=== PATIENT | female | born 1940 | race Caucasian/White ===

== ENCOUNTER 2017-05-21 14:55 | Emergency (ER) | payer SELFPAY ==
[~2017-05-21] VITALS: Ht 154.9 cm; Wt 74.8 kg
[2017-05-21 15:36] VITALS: BP 199/96
--- NOTE | 2017-05-21 15:37 | PHYS DOC ---
Past Medical History Past Medical History: Arthritis, Hypertension Additional Past Medical Histor: RLS Past Surgical History: Appendectomy, Cholecystectomy, Hysterectomy Additional Past Surgical Histo: EXPLORATORY ABD, HERNIA, L ARM FX, OVARIAN CYST Alcohol Use: None Drug Use: None Adult General Chief Complaint Chief Complaint: MECHANICAL FALL HPI HPI Patient is a 77 year old female brought to the ED by EMS from [place] [employer] parking lot after a fall. The patient had been shopping, she was looking for her car, and she tripped on a curb, fell face first and injured her nose. At first she thought she had a nosebleed but it turns out the bleeding was coming from external nasal injury. She denies hitting her head, denies mouth, tooth, tongue trauma. She denies neck pain. Denies wrist or knee pain. Her glasses were bent but not broken. She denies loss of consciousness. She was ambulatory at the scene. Bystanders called 911, she did not want to come in, but came in because they asked her to. Patient does not take any blood thinners. Review of Systems Review of Systems HENT: She did not have bleeding from the nose and she is able to breathe out of both sides of her nose. GI: Denies vomiting Musculoskeletal: Denies knee, wrist, or other bony pain Neurologic: Denies headache Allergies Allergies Allergies Coded Allergies Type Severity Reaction Last Updated Verified Penicillins Allergy Unknown "RASH" 05/21/17 No acetaminophen Allergy Unknown "PANIC ATTACK" 05/21/17 No codeine Allergy Unknown "RASH" 05/21/17 No oxycodone Allergy Unknown "PANIC ATTACK" 05/21/17 No Physical Exam Physical Exam Constitutional: Well developed, well nourished, no acute distress, non-toxic appearance. Alert, mentating normally, warm and dry. HENT: Very small, superficial abrasion on the right mid forehead, no swelling or hematoma associated, bilateral external ears normal, oropharynx moist, no oral exudates, no injury to mouth, teeth, or lips. There is an abrasion over the bridge of the nose that appears to be likely caused by the glasses. There is a deeper aspect to the abrasion that is a crush type injury, but not a laceration. The nose does not have significant swelling or asymmetry. The patient is able to breathe out of both sides of her nose. No septal hematoma or septal deviation. No evidence of epistaxis. Eyes: PERRLA, EOMI, conjunctiva normal, no discharge. [] Neck: Normal range of motion, no tenderness, no stridor. [] Skin: Warm, dry, no erythema, no rash. [] Extremities: No tenderness, no cyanosis, no clubbing, ROM intact, no edema. No tenderness of the clavicles, shoulders, wrists, hands, knees, or other tenderness or deformity of the extremities. Neurologic: Alert and oriented X 3, normal motor function, normal sensory function, no focal deficits noted. [] Current Patient Data Vital Signs Vital Signs Date Time Temp Pulse Resp B/P (MAP) Pulse Ox O2 Delivery O2 Flow Rate FiO2 05/21/17 15:36 83 199/96 (130) 97 Room Air 05/21/17 14:55 98.0 18 98.0 EKG EKG [] Radiology/Procedures Radiology/Procedures Procedure: Treatment of nasal abrasion/laceration. The nasal injury does not include a laceration which can be sutured. There is an abrasion that has no retained foreign body. Centrally, there is a deeper contusion type injury that appears to be a "divet" where possibly a small amount of skin is missing, nothing that can be sutured. I elected to treat this with Dermabond. The area was covered with Dermabond for hemostasis and treatment of the slightly deeper aspect of the abrasion. Course & Med Decision Making Course & Med Decision Making Pertinent Labs and Imaging studies reviewed. (See chart for details) 77-year-old female tripped over a curb and landed on her face, with her primary injury and abrasion to the bridge of her nose. She has a very small forehead abrasion that she did not even know that she had, she initially denied head injury. The patient denies this of consciousness or head pain. I offered the patient CT scan of her head and maxillofacial, or x-ray of the nasal bones. The patient declined both of these, she really does not want to have imaging at this time. She does not believe her nose is broken. I feel that that's a reasonable choice at this time. The abrasion was treated with Dermabond, see instructions for plan. [] Dragon Disclaimer Dragon Disclaimer This electronic medical record was generated, in whole or in part, using a voice recognition dictation system. Departure Departure Impression: Primary Impression: Abrasion of nose, initial encounter Additional Impressions: Contusion of nose, initial encounter Forehead abrasion Head injury Fall Disposition: 01 HOME, SELF-CARE Condition: STABLE Patient Instructions: Abrasion, [id number], Contusion, [id number], Head Injury, Adult, [id number] Additional Instructions: Apply ice 15-20 minutes out of every 1-2 hours to the nose to help with swelling. Sleep with head elevated to help with swelling of the nose. The nasal swelling may be worse after you have slept, it should improve after you have been up and around. You may get a black eye. If after 3-5 days, as the swelling goes down, if your nose seems crooked or you can breathe out of it the way you used to, visit your doctor to get an x-ray or CT scan. You have skin glue on your nose. You may get it wet briefly to shower or wash your face. You do not need to bandage it. Skin glue is dissolved by ointment, don't put any ointment on it. Also, see head injury precautions. Problem Qualifiers KATHERINE MONTERO MD May 21, 2017 15:37
== END 2017-05-21 15:56 | disposition home or self-care (01) ==
LOC: ER 14:55
DX: S00.33XA Contusion of nose, initial encounter (principal); S00.81XA Abrasion of other part of head, initial encounter; S09.90XA Unspecified injury of head, initial encounter; I10 Essential (primary) hypertension; M19.90 Unspecified osteoarthritis, unspecified site; Z88.0 Allergy status to penicillin; Z88.5 Allergy status to narcotic agent; Z88.6 Allergy status to analgesic agent; W01.198A Fall on same level from slipping, tripping and stumbling with subsequent striking against other object, initial encounter; Y93.89 Activity, other specified; Y92.481 Parking lot as the place of occurrence of the external cause; Y99.8 Other external cause status
CPT/HCPCS: 99284